=== PATIENT | female | born 1955 | race Caucasian/White ===

== ENCOUNTER 2020-05-18 16:22 | Emergency (ER) | payer MEDICARE, MEDICAID, SELFPAY ==
[2020-05-18 16:36] VITALS: BP 118/65; PULSE 83; RESP 16; TEMP 36.8; O2SAT 95; BMI 48.4
--- NOTE | 2020-05-18 16:52 | XR_ITS ---
EXAMINATION: CHEST 2 VIEWS CLINICAL INFORMATION: Right-sided pain. COMPARISON: None. TECHNIQUE: PA and lateral views of the chest were obtained. FINDINGS: The cardiac silhouette is not enlarged. The mediastinal and hilar contours are unremarkable. There are neither pleural effusions nor pneumothoraces. There are no consolidations. The osseous structures are unremarkable. XR/XR chest 2V IMPRESSION: No evidence for acute disease.
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
[2020-05-18 18:00] VITALS: PULSE 88; RESP 16; O2SAT 96
[2020-05-18 18:23] LABS: Troponin-I High Sensitivity 10.7 ng/L (<3.5-17.0)
[2020-05-18 18:26] VITALS: BP 129/67; PULSE 81; RESP 18; TEMP 37.2; O2SAT 98
[2020-05-18 20:02] VITALS: BP 139/77; PULSE 82; RESP 18; TEMP 36.7; O2SAT 97
== END 2020-05-18 22:19 | disposition home or self-care (01) ==
PROVIDERS: Emergency Provider Emergency Medicine
DX: S20.211A Contusion of right front wall of thorax, initial encounter (principal); R07.89 Other chest pain; V43.52XA Car driver injured in collision with other type car in traffic accident, initial encounter; Y93.9 Activity, unspecified; Y92.410 Unspecified street and highway as the place of occurrence of the external cause; Z79.899 Other long term (current) drug therapy
CPT/HCPCS: 71046; 84484; 99283; 99284